=== PATIENT | male | born 1960 | race Caucasian/White ===

== ENCOUNTER 2017-09-04 00:14 | Emergency (ER) | payer SELFPAY ==
[2017-09-04] MEDS ORDERED: IPRATROPIUM BROM 0.5MG/2.5ML ONE (00:53)
[2017-09-04] MEDS ORDERED: ALBUTEROL 2.5 MG/3 ML NEB SOL ONE ×2 (00:53→01:59)
[2017-09-04] MEDS ORDERED: predniSONE 20 MG TAB ONE (01:18)
--- NOTE | 2017-09-04 02:25 | EDPHYS ---
Physician Documentation [facility] Name: Iwona Hill Age: 57 yrs Sex: Male : 1960 Arrival Date: 09/04/2017 Time: 00:17 Bed 4 Private MD: ED Physician Mikhail Paniagua HPI: 09/04 01:41 This 57 yrs old Male presents to ER via Ambulatory with complaints of Chest tw4 Congestion. 01:41 The patient has shortness of breath at rest. Onset: The symptoms/episode began/occurred tw4 today. Duration: The symptoms are continuous, and are steadily getting worse. The patient's shortness of breath has no apparent modifying factors. Associated signs and symptoms: Pertinent positives: non-productive cough. Severity of symptoms: At their worst the symptoms were moderate in the emergency department the symptoms are unchanged. The patient has not experienced similar symptoms in the past. Historical: - Allergies: 00:28 No Known Allergies; fc - Home Meds: 00:28 Seroquel 400 mg Oral tab 2 tab nightly [Active]; trazodone 100 mg Oral tab 1 tab fc nightly [Active]; Klonopin 1 mg Oral tab 1 tab nightly [Active]; - PMHx: 00:28 Bipolar disorder; fc - PSHx: 00:28 Tonsillectomy; fc - Immunization history:: Last tetanus immunization: unknown. - Social history:: Smoking status: Patient/guardian denies using tobacco. ROS: 01:41 Constitutional: Negative for fever, chills, and weight loss, Eyes: Negative for injury, tw4 pain, redness, and discharge, Cardiovascular: Negative for chest pain, palpitations, and edema, Abdomen/GI: Negative for abdominal pain, nausea, vomiting, diarrhea, and constipation, Back: Negative for injury and pain, MS/Extremity: Negative for injury and deformity, Skin: Negative for injury, rash, and discoloration, Neuro: Negative for headache, weakness, numbness, tingling, and seizure. 01:41 Respiratory: Positive for cough, shortness of breath, wheezing, Negative for dyspnea on exertion, hemoptysis, orthopnea, pleurisy. Exam: 01:41 Constitutional: This is a well developed, well nourished patient who is awake, alert, tw4 and in no acute distress. Head/Face: Normocephalic, atraumatic. Chest/axilla: Normal chest wall appearance and motion. Nontender with no deformity. No lesions are appreciated. Cardiovascular: Regular rate and rhythm with a normal S1 and S2. No gallops, murmurs, or rubs. Normal PMI, no JVD. No pulse deficits. 01:41 Abdomen/GI: Soft, non-tender, with normal bowel sounds. No distension or tympany. No guarding or rebound. No evidence of tenderness throughout. Back: No spinal tenderness. No costovertebral tenderness. Full range of motion. MS/ Extremity: Pulses equal, no cyanosis. Neurovascular intact. Full, normal range of motion. Neuro: Awake and alert, GCS 15, oriented to person, place, time, and situation. Cranial nerves II-XII grossly intact. Motor strength 5/5 in all extremities. Sensory grossly intact. Cerebellar exam normal. Normal gait. 01:41 Respiratory: the patient does not display signs of respiratory distress, Respirations: normal, Breath sounds: wheezing: Vital Signs: 00:28 BP 125 / 82; Pulse 79; Resp 20; Temp 97.6(TE); Pulse Ox 93% on R/A; Weight 86.18 kg fc (R); Height 5 ft. 8 in. (172.72 cm) (R); Pain 0/10; 01:25 BP 117 / 76; Pulse 66; Resp 18; Pulse Ox 97% on R/A; tl2 00:28 Body Mass Index 28.89 (86.18 kg, 172.72 cm) MDM: 00:33 Patient medically screened. tw4 09/04 00:38 Order name: Chest Single View XRAY tw4 Administered Medications: 00:40 Drug: Albuterol - atroVENT (3:1) (2.5 mg - 0.5 mg) 3 ml Route: Nebulizer; tl1 01:00 Drug: predniSONE 60 mg Route: PO; tl1 01:47 Drug: Albuterol 2.5 mg Route: Inhalation; aa1 Disposition: 09/04/17 02:24 Discharged to Home. Impression: Acute bronchospasm. - Condition is Stable. - Discharge Instructions: Bronchospasm, Adult, How to Use an Inhaler, Asthma, Adult, [id number], Bronchospasm, Adult, [id number]-[id number]. - Prescriptions for Medrol (Buddy) 4 mg Oral Tablets, Dose Pack - take 1 tablet by ORAL route as directed - follow package instructions; 1 packet. Albuterol Sulfate 90 mcg/actuation - inhale 1-2 puff by INHALATION route every 4-6 hours; 1 Inhaler. - Medication Reconciliation Form, Thank You Letter, Antibiotic Education, Prescription Opioid Use form. - Follow up: Private Physician; When: As needed; Reason: Recheck today's complaints, Continuance of care, Re-evaluation by your physician. - Problem is new. - Symptoms have improved. Signatures: Dispatcher [employer] EDPattie Duke RN RN aa1 Franny Redmond RN RN Mayra Whalen RN RN tl1 Mikhail Paniagua MD MD tw4
--- NOTE | 2017-09-04 02:25 | ER ---
Nurse's Notes [facility] Name: Iwona Hill Age: 57 yrs Sex: Male : 1960 Arrival Date: 09/04/2017 Time: 00:17 Bed 4 Private MD: Diagnosis: Acute bronchospasm Presentation: 09/04 00:25 Presenting complaint: Patient states: that he is having trouble breathing, has a cough fc with sputum that started on the 29 of August. States that when he coughs it feels as if his lungs are burning. Transition of care: patient was not received from another setting of care. Onset of symptoms was August 29, 2017. Care prior to arrival: Medication(s) given: Has taken Mucinex, Robitussin DM and NyQuil. 00:25 Method Of Arrival: Ambulatory fc 00:25 Acuity: ROLO 3 fc Historical: - Allergies: 00:28 No Known Allergies; fc - Home Meds: 00:28 Seroquel 400 mg Oral tab 2 tab nightly [Active]; trazodone 100 mg Oral tab 1 tab fc nightly [Active]; Klonopin 1 mg Oral tab 1 tab nightly [Active]; - PMHx: 00:28 Bipolar disorder; fc - PSHx: 00:28 Tonsillectomy; fc - Immunization history:: Last tetanus immunization: unknown. - Social history:: Smoking status: Patient/guardian denies using tobacco. Screenin:30 Abuse screen: Denies threats or abuse. Nutritional screening: No deficits noted. fc Tuberculosis screening: No symptoms or risk factors identified. Fall Risk None identified. Assessment: 00:41 General: Appears in no apparent distress. uncomfortable, Behavior is calm, cooperative, tl2 appropriate for age. Pain: Complains of pain in pain in lungs while coughing. Neuro: Level of Consciousness is awake, alert, obeys commands, Oriented to person, place, time, situation. Cardiovascular: Denies chest pain. Respiratory: Airway is patent Respiratory effort is even, unlabored, Respiratory pattern is regular, symmetrical, Breath sounds with wheezes bilaterally. the patient has moderate shortness of breath. Respiratory: Reports cough that is productive, pain with cough. GI: No signs and/or symptoms were reported involving the gastrointestinal system. : No signs and/or symptoms were reported regarding the genitourinary system. Derm: Skin is pink, warm \T\ dry. 01:25 Reassessment: Patient appears in no apparent distress at this time. Patient and/or tl2 family updated on plan of care and expected duration. Pain level reassessed. Patient is alert, oriented x 3, equal unlabored respirations, skin warm/dry/pink. Patient states feeling better. 02:38 Reassessment: Patient appears in no apparent distress at this time. Patient is alert, aa1 oriented x 3, equal unlabored respirations, skin warm/dry/pink. Discussed d/c \T\ f/u instructions with pt; denies questions or concerns at this time. Vital Signs: 00:28 BP 125 / 82; Pulse 79; Resp 20; Temp 97.6(TE); Pulse Ox 93% on R/A; Weight 86.18 kg fc (R); Height 5 ft. 8 in. (172.72 cm) (R); Pain 0/10; 01:25 BP 117 / 76; Pulse 66; Resp 18; Pulse Ox 97% on R/A; tl2 00:28 Body Mass Index 28.89 (86.18 kg, 172.72 cm) fc ED Course: 00:17 Patient arrived in ED. es 00:27 Triage completed. fc 00:28 Arm band placed on Patient placed in an exam room, on a stretcher. fc 00:30 Patient has correct armband on for positive identification. Placed in gown. Bed in low fc position. Call light in reach. 00:33 Mikhail Paniagua MD is Attending Physician. tw4 00:41 No provider procedures requiring assistance completed. tl2 01:35 X-ray completed. Portable x-ray completed in exam room. Patient tolerated procedure kp1 well. 01:38 Chest Single View XRAY In Process Unspecified. EDMS 02:38 Patient did not have IV access during this emergency room visit. aa1 Administered Medications: 00:40 Drug: Albuterol - atroVENT (3:1) (2.5 mg - 0.5 mg) 3 ml Route: Nebulizer; tl1 01:00 Drug: predniSONE 60 mg Route: PO; tl1 01:47 Drug: Albuterol 2.5 mg Route: Inhalation; aa1 Outcome: 02:24 Discharge ordered by . tw4 02:38 Discharged to home ambulatory, with family. aa1 02:38 Condition: good 02:38 Discharge instructions given to patient, family, Instructed on discharge instructions, follow up and referral plans. medication usage, Demonstrated understanding of instructions, follow-up care, medications, Prescriptions given X 2. 02:39 Patient left the ED. aa1 Signatures: Dispatcher [employer] EDPattie Duke RN RN aa1 Lala Loving Felicia, RN RN Mayra Whalen RN RN tl1 Josy Garcia RN RN tl2 Madeline Leslie 1 Mikhail Paniagua MD MD tw4
--- NOTE | 2017-09-04 11:11 | RAD REPORT ---
EXAM DESCRIPTION: RAD - Chest Single View - 09/04/2017 1:38 am CLINICAL HISTORY: Cough. COMPARISON: None. FINDINGS: Portable technique limits examination quality. The lungs are grossly clear. The heart is normal in size. No displaced fractures. IMPRESSION: No acute intrathoracic process suspected.
== END 2017-09-04 02:39 | disposition home or self-care (01) ==
LOC: ER 00:14
DX: J98.01 Acute bronchospasm (principal); F31.9 Bipolar disorder, unspecified
CPT/HCPCS: 71045; 94640; 99284; J7512

== ENCOUNTER 2018-04-05 18:03 | Emergency (ER) | payer OTHER, SELFPAY ==
[2018-04-05] MEDS ORDERED: KETOROLAC 30 MG/ML INJ ONE (18:43)
--- NOTE | 2018-04-05 19:05 | RAD REPORT ---
EXAM DESCRIPTION: CT - Head Brain Wo Cont - 04/05/2018 6:57 pm CLINICAL HISTORY: HEADACHE COMPARISON: No comparisons TECHNIQUE: All CT scans are performed using dose optimization technique as appropriate and may inclu de automated exposure control or mA/KV adjustment according to patient size. FINDINGS: No intracranial hemorrhage, hydrocephalus or extra-axial fluid collection.No areas of brai n edema or evidence of midline shift. The paranasal sinuses and mastoids are clear. The calvarium is intact. IMPRESSION: No acute intracranial abnormality.
--- NOTE | 2018-04-05 19:36 | EDPHYS ---
Physician Documentation [facility] Name: Iwona Hill Age: 58 yrs Sex: Male : 1960 Arrival Date: 04/05/2018 Time: 18:04 Bed 8 Private MD: Wilberto Santos V ED Physician Doug Flower HPI: 04/05 19:28 This 58 yrs old Male presents to ER via Wheelchair with complaints of Post gs Surgical Pain. 19:28 The patient complains of pain to the forehead and right eye. The patient describes the gs headache as throbbing. Onset: The symptoms/episode began/occurred gradually, just prior to arrival. Associated signs and symptoms: Pertinent negatives: altered mental status, vomiting. Severity of symptoms: At its worst the pain was severe, in the emergency department the pain is unchanged. Headache History: Denies prior headaches. The symptoms are alleviated by nothing. the symptoms are aggravated by nothing. The patient has experienced similar episodes in the past, a few times, but today's symptoms are worse. The patient has been recently seen by a physician: dr mcbride had cataract today. Historical: - Allergies: 18:21 No Known Allergies; ch - Home Meds: 18:21 Klonopin 1 mg Oral tab 1 tab nightly [Active]; Seroquel 400 mg Oral tab 2 tab nightly ch [Active]; trazodone 100 mg Oral tab 1 tab nightly [Active]; Propranolol Oral as needed for sedation [Active]; - PMHx: 18:21 Bipolar disorder; psychiatric issues; Kidney stones; LOC and concussion in ; ch - PSHx: 18:21 Tonsillectomy; r eye cataract; ch - Immunization history:: Adult Immunizations unknown, Flu vaccine is not up to date. - Social history:: Smoking status: Patient/guardian denies using tobacco. - Ebola Screening: : Patient negative for fever greater than or equal to 101.5 degrees Fahrenheit, and additional compatible Ebola Virus Disease symptoms Patient denies exposure to infectious person Patient denies travel to an Ebola-affected area in the 21 days before illness onset No symptoms or risks identified at this time. ROS: 19:28 All other systems are negative. gs Exam: 19:28 Head/Face: Normocephalic, atraumatic. Eyes: Pupils equal round and reactive to light, gs extra-ocular motions intact. Lids and lashes normal. Conjunctiva and sclera are non-icteric and not injected. Cornea within normal limits. Periorbital areas with no swelling, redness, or edema. ENT: Nares patent. No nasal discharge, no septal abnormalities noted. Tympanic membranes are normal and external auditory canals are clear. Oropharynx with no redness, swelling, or masses, exudates, or evidence of obstruction, uvula midline. Mucous membranes moist. Neck: Trachea midline, no thyromegaly or masses palpated, and no cervical lymphadenopathy. Supple, full range of motion without nuchal rigidity, or vertebral point tenderness. No Meningismus. Chest/axilla: Normal chest wall appearance and motion. Nontender with no deformity. No lesions are appreciated. Cardiovascular: Regular rate and rhythm with a normal S1 and S2. No gallops, murmurs, or rubs. Normal PMI, no JVD. No pulse deficits. Respiratory: Lungs have equal breath sounds bilaterally, clear to auscultation and percussion. No rales, rhonchi or wheezes noted. No increased work of breathing, no retractions or nasal flaring. Abdomen/GI: Soft, non-tender, with normal bowel sounds. No distension or tympany. No guarding or rebound. No evidence of tenderness throughout. Back: No spinal tenderness. No costovertebral tenderness. Full range of motion. Skin: Warm, dry with normal turgor. Normal color with no rashes, no lesions, and no evidence of cellulitis. MS/ Extremity: Pulses equal, no cyanosis. Neurovascular intact. Full, normal range of motion. Neuro: Awake and alert, GCS 15, oriented to person, place, time, and situation. Cranial nerves II-XII grossly intact. Motor strength 5/5 in all extremities. Sensory grossly intact. Cerebellar exam normal. Normal gait. 19:28 Constitutional: The patient appears alert, awake. 19:28 Eyes: r eye covered. Vital Signs: 18:21 BP 153 / 97; Pulse 88; Resp 14; Temp 98.6; Pulse Ox 99% on R/A; Weight 95.25 kg; Height ch 5 ft. 8 in. (172.72 cm); Pain 9/10; 19:07 BP 145 / 92; Pulse 86; Resp 16 S; Pulse Ox 95% on R/A; Pain 8/; jd3 18:21 Body Mass Index 31.93 (95.25 kg, 172.72 cm) MDM: 18:30 Patient medically screened. 19:28 Differential diagnosis: migraine, subarachnoid bleed, tension headache, vasomotor gs headache. Data reviewed: vital signs, nurses notes, and as a result, I will discharge patient. Response to treatment: the patient's symptoms have resolved after treatment. 04/05 18:33 Order name: CT Head Brain wo Cont; Complete Time: 19:22 gs Administered Medications: 18:40 Drug: TORadol 30 mg Route: IVP; Site: right hand; 19:10 Follow up: Response: No adverse reaction; Pain is decreased jd3 Disposition: 04/05/18 19:35 Discharged to Home. Impression: Headache, Other acute postprocedural pain. - Condition is Stable. - Discharge Instructions: General Headache Without Cause. - Medication Reconciliation Form, Thank You Letter, Antibiotic Education, Prescription Opioid Use form. - Follow up: Private Physician; When: 2 - 3 days; Reason: Re-evaluation by your physician. Signatures: Dispatcher [employer] EDMS Trudi Presley RN RN Doug Flower MD MD Kendrick Yoon RN RN jd3 Corrections: (The following items were deleted from the chart) 19:54 19:35 04/05/2018 19:35 Discharged to Home. Impression: Headache; Other acute jd3 postprocedural pain. Condition is Stable. Forms are Medication Reconciliation Form, Thank You Letter, Antibiotic Education, Prescription Opioid Use. Follow up: Private Physician; When: 2 - 3 days; Reason: Re-evaluation by your physician. gs
--- NOTE | 2018-04-05 19:36 | ER ---
Nurse's Notes [facility] Name: Iwona Hill Age: 58 yrs Sex: Male : 1960 Arrival Date: 04/05/2018 Time: 18:04 Bed 8 Private MD: Wilberto Santos V Diagnosis: Headache;Other acute postprocedural pain Presentation: 04/05 18:15 Presenting complaint: Patient states: cataract surgery today by dr. Kate around 0900 ch am. pt discharged from his office at 1200. at 1500 started getting a headache, to the front of his head. states his R eye is slightly uncomfortable, but the headache is a 9 out of 10. Transition of care: patient was not received from another setting of care. Onset of symptoms was April 05, 2018 at 15:00. Risk Assessment: Do you want to hurt yourself or someone else? Patient reports no desire to harm self or others. Initial Sepsis Screen: Does the patient meet any 2 criteria? No. Patient's initial sepsis screen is negative. Does the patient have a suspected source of infection? No. Patient's initial sepsis screen is negative. Care prior to arrival: None. 18:15 Method Of Arrival: Wheelchair 18:15 Acuity: ROLO 2 ch Triage Assessment: 18:21 General: Appears in no apparent distress. uncomfortable, Behavior is cooperative, ch appropriate for age, anxious, restless. Pain: Complains of pain in top of head, forehead and right eye Pain currently is 9 out of 10 on a pain scale. Pain began gradually. Neuro: No deficits noted. Level of Consciousness is awake, alert, obeys commands, Oriented to person, place, time, situation, [employer] are equal bilaterally Moves all extremities. Full function Gait is steady, Speech is normal, Facial symmetry appears normal, Facial symmetry: tongue is midline, R eye is bandaged. Cardiovascular: No deficits noted. Heart tones S1 S2 present. Respiratory: Airway is patent Respiratory effort is even, unlabored, Breath sounds are clear bilaterally. : No signs and/or symptoms were reported regarding the genitourinary system. Derm: Skin is pink, warm \T\ dry. Historical: - Allergies: 18:21 No Known Allergies; ch - Home Meds: 18:21 Klonopin 1 mg Oral tab 1 tab nightly [Active]; Seroquel 400 mg Oral tab 2 tab nightly [Active]; trazodone 100 mg Oral tab 1 tab nightly [Active]; Propranolol Oral as needed for sedation [Active]; - PMHx: 18:21 Bipolar disorder; psychiatric issues; Kidney stones; LOC and concussion in ; - PSHx: 18:21 Tonsillectomy; r eye cataract; - Immunization history:: Adult Immunizations unknown, Flu vaccine is not up to date. - Social history:: Smoking status: Patient/guardian denies using tobacco. - Ebola Screening: : Patient negative for fever greater than or equal to 101.5 degrees Fahrenheit, and additional compatible Ebola Virus Disease symptoms Patient denies exposure to infectious person Patient denies travel to an Ebola-affected area in the 21 days before illness onset No symptoms or risks identified at this time. Screenin:23 Abuse screen: Denies threats or abuse. Denies injuries from another. Nutritional screening: No deficits noted. Tuberculosis screening: No symptoms or risk factors identified. Fall Risk None identified. Assessment: 18:23 Reassessment: Patient appears in no apparent distress at this time. No changes from previously documented assessment. 18:49 Reassessment: Patient appears in no apparent distress at this time. No changes from previously documented assessment. Patient and/or family updated on plan of care and expected duration. Pain level reassessed. Patient is alert, oriented x 3, equal unlabored respirations, skin warm/dry/pink. Ct Called to check status, awaiting ct scan now. 18:58 Reassessment: Patient appears in no apparent distress at this time. report given to John. 19:03 Reassessment: Patient appears in no apparent distress at this time. No changes from [facility] previously documented assessment. Patient and/or family updated on plan of care and expected duration. Pain level reassessed. Patient is alert, oriented x 3, equal unlabored respirations, skin warm/dry/pink. General: Appears uncomfortable, Behavior is calm, cooperative. Pain: Complains of pain in head and right eye. Neuro: Level of Consciousness is awake, alert, obeys commands, Oriented to person, place, time, situation, Appropriate for age Gait is steady, Speech is normal, Facial symmetry appears normal, Intact right eye bandaged per post right eye cataract surgery.. 19:53 Reassessment: Patient appears in no apparent distress at this time. Patient and/or jd3 family updated on plan of care and expected duration. Pain level reassessed. Patient is alert, oriented x 3, equal unlabored respirations, skin warm/dry/pink. Patient states feeling better. Vital Signs: 18:21 BP 153 / 97; Pulse 88; Resp 14; Temp 98.6; Pulse Ox 99% on R/A; Weight 95.25 kg; Height ch 5 ft. 8 in. (172.72 cm); Pain 9/10; 19:07 BP 145 / 92; Pulse 86; Resp 16 S; Pulse Ox 95% on R/A; Pain 8/10; jd3 18:21 Body Mass Index 31.93 (95.25 kg, 172.72 cm) ED Course: 18:04 Patient arrived in ED. as 18:04 Wilberto Santos MD is Private Physician. as 18:08 Doug Flower MD is Attending Physician. gs 18:15 Trudi Presley, VANESSA is Primary Nurse. ch 18:17 Triage completed. ch 18:21 Arm band placed on left wrist. Patient placed in an exam room, on a stretcher, on pulse oximetry. 18:23 No apparent distress. Resting quietly. ch 18:23 Patient has correct armband on for positive identification. Placed in gown. Bed in low ch position. Call light in reach. Side rails up X 1. Pulse ox on. NIBP on. 18:23 No provider procedures requiring assistance completed. ch 18:39 Inserted saline lock: 20 gauge in right hand, using aseptic technique. ch 18:49 Door closed. Lights dimmed. Warm blanket given. ch 18:56 CT Head Brain wo Cont In Process Unspecified. EDMS 18:58 Report given to John. ch 18:[address] moved back from [address]. 2 19:00 Kendrick Yoon, RN is Primary Nurse. jd3 19:53 IV discontinued, intact, bleeding controlled, No redness/swelling at site. Pressure jd3 dressing applied. Administered Medications: 18:40 Drug: TORadol 30 mg Route: IVP; Site: right hand; ch 19:10 Follow up: Response: No adverse reaction; Pain is decreased jd3 Outcome: 19:35 Discharge ordered by . gs 19:52 Discharged to home ambulatory. jd3 19:52 Condition: stable 19:52 Discharge instructions given to patient, Instructed on discharge instructions, follow up and referral plans. Demonstrated understanding of instructions, follow-up care. 19:54 Patient left the ED. jd3 Signatures: Dispatcher [employer] EDMS Trudi Presley RN RN Sindhu Neal [facility] Doug Flower MD MD gs Davies, Jonathon, RN RN jd3 Corrections: (The following items were deleted from the chart) 18:50 18:49 Inserted saline lock: 20 gauge in right hand, using aseptic technique. [facility]
== END 2018-04-05 19:54 | disposition home or self-care (01) ==
LOC: ER 18:03
DX: R51 Headache (principal); F31.9 Bipolar disorder, unspecified; Z98.890 Other specified postprocedural states
CPT/HCPCS: 70450; 96374; 99284

== ENCOUNTER 2018-05-14 11:07 | Emergency (ER) | payer OTHER ==
--- NOTE | 2018-05-14 12:18 | EDPHYS ---
Physician Documentation [facility] Name: Iwona Hill Age: 58 yrs Sex: Male : 1960 Arrival Date: 05/14/2018 Time: 11:09 Bed 11 Private MD: None, None ED Physician Doug Flower HPI: 05/14 12:14 This 58 yrs old Male presents to ER via Ambulatory with complaints of Ear gs Pain - SWELLING. 12:14 The patient presents with pain, swelling. The complaints affect the left ear canal. gs Onset: The symptoms/episode began/occurred 4 day(s) ago, and became worse and became persistent. Modifying factors: The symptoms are alleviated by nothing, the symptoms are aggravated by touching. Associated signs and symptoms: Pertinent negatives: fever. Severity of symptoms: At their worst the symptoms were moderate in the emergency department the symptoms are unchanged. The patient has not experienced similar symptoms in the past. Historical: - Allergies: 11:19 No Known Allergies; aj1 - Home Meds: 11:19 Seroquel 400 mg Oral tab 2 tab nightly [Active]; Klonopin 1 mg Oral tab 1 tab nightly aj1 [Active]; Propranolol Oral as needed for sedation [Active]; trazodone 100 mg Oral tab 1 tab nightly [Active]; - PMHx: 11:19 Bipolar disorder; Kidney stones; LOC and concussion in ; psychiatric issues; aj1 - Immunization history:: Flu vaccine is not up to date. - Social history:: Smoking status: Patient/guardian denies using tobacco. - Ebola Screening: : Patient denies travel to an Ebola-affected area in the 21 days before illness onset. ROS: 12:14 All other systems are negative. gs Exam: 12:14 Head/Face: Normocephalic, atraumatic. Eyes: Pupils equal round and reactive to light, gs extra-ocular motions intact. Lids and lashes normal. Conjunctiva and sclera are non-icteric and not injected. Cornea within normal limits. Periorbital areas with no swelling, redness, or edema. Neck: Trachea midline, no thyromegaly or masses palpated, and no cervical lymphadenopathy. Supple, full range of motion without nuchal rigidity, or vertebral point tenderness. No Meningismus. Chest/axilla: Normal chest wall appearance and motion. Nontender with no deformity. No lesions are appreciated. Cardiovascular: Regular rate and rhythm with a normal S1 and S2. No gallops, murmurs, or rubs. Normal PMI, no JVD. No pulse deficits. Respiratory: Lungs have equal breath sounds bilaterally, clear to auscultation and percussion. No rales, rhonchi or wheezes noted. No increased work of breathing, no retractions or nasal flaring. Abdomen/GI: Soft, non-tender, with normal bowel sounds. No distension or tympany. No guarding or rebound. No evidence of tenderness throughout. Skin: Warm, dry with normal turgor. Normal color with no rashes, no lesions, and no evidence of cellulitis. 12:14 Constitutional: The patient appears alert, awake. 12:14 ENT: External ear(s): pain with movement, that is moderate, of the left ear canal, Ear canal(s): erythema, that is moderate, of the left canal, swelling, that is minimal, of the left canal, TM's: no acute changes. Vital Signs: 11:19 BP 139 / 85; Pulse 91; Resp 18; Temp 97.8; Pulse Ox 96% on R/A; Weight 95.25 kg (R); aj1 Height 5 ft. 8 in. (172.72 cm) (R); Pain 6/10; 11:19 Body Mass Index 31.93 (95.25 kg, 172.72 cm) aj1 MDM: 12:03 Patient medically screened. 12:14 Differential diagnosis: otitis externa, foreign body, acute otalgia. Data reviewed: vital signs, nurses notes. Counseling: I had a detailed discussion with the patient and/or guardian regarding: the historical points, exam findings, and any diagnostic results supporting the discharge/admit diagnosis, the need for outpatient follow up, an ENT specialist. Response to treatment: the patient's symptoms have mildly improved after treatment, and as a result, I will discharge patient. 12:18 Counseling: I had a detailed discussion with the patient and/or guardian regarding: the gs presence of at least one elevated blood pressure reading (>120/80) during this emergency department visit. Special discussion: I have referred the patient to see his PCP for further evaluation of high blood pressure. Administered Medications: No medications were administered Disposition: 05/14/18 12:17 Discharged to Home. Impression: Acute actinic otitis externa, left ear. - Condition is Stable. - Discharge Instructions: Ear Drops, Adult, Managing Your Hypertension. - Prescriptions for Ciprodex 0.3- 0.1 % Otic Drops, Suspension - instill 4 drop by OTIC route every 12 hours for 7 days , for ears ONLY; 1 Container. - Medication Reconciliation Form, Thank You Letter, Antibiotic Education, Prescription Opioid Use form. - Follow up: Kaila Love MD; When: 2 - 3 days; Reason: Re-evaluation by your physician. Signatures: Nidhi Estes RN RN aj1 Cookie Batista RN RN ss Doug Flower MD MD gs Corrections: (The following items were deleted from the chart) 12:24 12:17 05/14/2018 12:17 Discharged to Home. Impression: Acute actinic otitis externa, ss left ear. Condition is Stable. Forms are Medication Reconciliation Form, Thank You Letter, Antibiotic Education, Prescription Opioid Use. Follow up: Kaila Love; When: 2 - 3 days; Reason: Re-evaluation by your physician. gs
--- NOTE | 2018-05-14 12:18 | ER ---
Nurse's Notes [facility] Name: Iwona Hill Age: 58 yrs Sex: Male : 1960 Arrival Date: 05/14/2018 Time: 11:09 Bed 11 Private MD: None, None Diagnosis: Acute actinic otitis externa, left ear Presentation: 05/14 11:17 Presenting complaint: Patient states: "My ear feels like its about to fall off my head" aj1 Reports left ear pain for the past 4 days. States he bought "some ear cleaning stuff" from the grocery store and tried that and then tried some Swimmers Ear that he got at the store, but has not had any relief. Reports trouble hearing out of the left ear. Transition of care: patient was not received from another setting of care. Onset of symptoms was April 2018. Risk Assessment: Do you want to hurt yourself or someone else? Patient reports no desire to harm self or others. Initial Sepsis Screen: Does the patient meet any 2 criteria? HR > 90 bpm. No. Patient's initial sepsis screen is negative. Does the patient have a suspected source of infection? No. Patient's initial sepsis screen is negative. Care prior to arrival: None. 11:17 Method Of Arrival: Ambulatory aj1 11:17 Acuity: ROLO 4 aj1 Triage Assessment: 11:19 General: Appears in no apparent distress. uncomfortable, Behavior is calm, cooperative, aj1 appropriate for age. Pain: Complains of pain in left ear Pain currently is 6 out of 10 on a pain scale. EENT: Reports left ear pain. Neuro: Level of Consciousness is awake, alert, obeys commands. Cardiovascular: Patient's skin is warm and dry. Respiratory: Airway is patent Respiratory effort is even, unlabored, Respiratory pattern is regular, symmetrical. Historical: - Allergies: 11:19 No Known Allergies; aj1 - Home Meds: 11:19 Seroquel 400 mg Oral tab 2 tab nightly [Active]; Klonopin 1 mg Oral tab 1 tab nightly aj1 [Active]; Propranolol Oral as needed for sedation [Active]; trazodone 100 mg Oral tab 1 tab nightly [Active]; - PMHx: 11:19 Bipolar disorder; Kidney stones; LOC and concussion in ; psychiatric issues; aj1 - Immunization history:: Flu vaccine is not up to date. - Social history:: Smoking status: Patient/guardian denies using tobacco. - Ebola Screening: : Patient denies travel to an Ebola-affected area in the 21 days before illness onset. Screenin:21 Abuse screen: Denies threats or abuse. Denies injuries from another. Nutritional ss screening: No deficits noted. Tuberculosis screening: No symptoms or risk factors identified. Never had TB. Fall Risk None identified. Assessment: 11:23 General: Appears in no apparent distress. uncomfortable, Behavior is calm, cooperative, aj1 appropriate for age. Pain: Complains of pain in left ear Pain does not radiate. Pain currently is 6 out of 10 on a pain scale. Quality of pain is described as throbbing. Neuro: Level of Consciousness is awake, alert, obeys commands. Cardiovascular: Patient's skin is warm and dry. Respiratory: Airway is patent Respiratory effort is even, unlabored, Respiratory pattern is regular, symmetrical. GI: No signs and/or symptoms were reported involving the gastrointestinal system. : No signs and/or symptoms were reported regarding the genitourinary system. EENT: Reports ear pain, decreased hearing to left ear. Derm: No signs and/or symptoms reported regarding the dermatologic system. Skin is pink, warm \\T\\ dry. normal. Musculoskeletal: No signs and/or symptoms reported regarding the musculoskeletal system. Circulation, motion, and sensation intact. Vital Signs: 11:19 BP 139 / 85; Pulse 91; Resp 18; Temp 97.8; Pulse Ox 96% on R/A; Weight 95.25 kg (R); aj1 Height 5 ft. 8 in. (172.72 cm) (R); Pain 6/10; 11:19 Body Mass Index 31.93 (95.25 kg, 172.72 cm) aj1 ED Course: 11:09 Patient arrived in ED. sb2 11:09 None, None is Private Physician. sb2 11:19 Triage completed. aj1 11:19 Arm band placed on Patient placed in an exam room. aj1 11:21 Cookie Batista, RN is Primary Nurse. ss 11:21 Patient has correct armband on for positive identification. Bed in low position. Call ss light in reach. 11:21 Patient maintains SpO2 saturation greater than 95% on room air. ss 11:22 Flower Doug, MD is Attending Physician. 11:23 No provider procedures requiring assistance completed. aj1 12:17 Kaila Love MD is Referral Physician. 12:24 Patient did not have IV access during this emergency room visit. Administered Medications: No medications were administered Outcome: 12:17 Discharge ordered by . 12:24 Discharged to home ambulatory. 12:24 Condition: good 12:24 Discharge instructions given to patient, Instructed on discharge instructions, follow up and referral plans. medication usage, Demonstrated understanding of instructions, follow-up care, medications, Prescriptions given X 1. 12:24 Patient left the ED. Signatures: Nidhi Estes RN RN aj1 Cookie Batista RN RN Doug Flower MD MD Tracy Corado sb2
[2018-05-14 12:31] VITALS: BP 139/85; TEMP 97.8; O2SAT 96
== END 2018-05-14 12:24 | disposition home or self-care (01) ==
LOC: ER 11:07
DX: H60.512 Acute actinic otitis externa, left ear (principal); F31.9 Bipolar disorder, unspecified
CPT/HCPCS: 99284

== ENCOUNTER 2018-05-15 15:43 | Inpatient (IN) | payer OTHER ==
[2018-05-15] MEDS ORDERED: NA CHLORIDE 0.9% 500 ML ONE (16:11)
[2018-05-15] MEDS ORDERED: PIPER/TAZO/NS 3.375gm 3.375 GM/100 ML BAG ONE (16:11)
[2018-05-15] MEDS ORDERED: VANCOMYCIN 1 GM/250 ML BAG ONE (16:11)
[2018-05-15 16:59] LABS: Absolute Lymphocytes (CBC) 1.6 K/uL (0.7-4.9); Absolute Monocytes 1.1 K/uL (0.1-1.3); Basophils % 0.6 % (0-1.3); Eosinophils % 2.5 % (0-4.4); Lymphocytes % 16.2 % (15.3-44.8); MPV 7.7 fL (7.6-11.3); RBC Red Blood Cell Count 4.96 M/uL (4.33-5.43)
[2018-05-15 17:01] LABS: Potassium 4.5 mmol/L (3.5-5.1)
--- NOTE | 2018-05-15 17:39 | RAD REPORT ---
EXAM DESCRIPTION: CT - Soft Tissue Neck W/Contr - 05/15/2018 5:21 pm CLINICAL HISTORY: Left-sided facial swelling and left ear pain TECHNIQUE: During dynamic enhancement using 100 milliliters nonionic IV contrast, axial 5 millimeter thick images of the neck were obtained. All CT scans are performed using dose optimization technique as appropriate and may include automated exposure control or mA/KV adjustment according to patient size. FINDINGS: Intracranial portion the examination is unremarkable. No globe or orbital content abnormal ity. No acute paranasal sinus finding. No pharyngeal mucosal mass or asymmetry. Tonsillar and tongue base tissues are unremarkable. Soft pal ate, epiglottis and larynx also unremarkable. Thyroid, parotid and submandibular glands are normal. There is thickening and edema of the soft tissues of the external auditory canal. This extends somewh at into the left earlobe. Minimal edema along the posterior margin of the parotid gland. A few reacti ve lymph nodes are present in this region. The mastoid air cells are clear. Left middle ear is normal ly aerated. IMPRESSION: Left otitis externa extending into the inferior left earlobe and in the soft tissues vivek ng the posterior margin of the left parotid gland. Mastoid air cells and middle ear are clear.
[2018-05-15] MEDS ORDERED: FENTANYL CITR 100 MCG/2 ML ONE (18:02)
--- NOTE | 2018-05-15 18:26 | EDPHYS ---
Physician Documentation [facility] Name: Iwona Hill Age: 58 yrs Sex: Male : 1960 Arrival Date: 05/15/2018 Time: 15:45 Bed 24 Private MD: None, None ED Physician Doug Flower HPI: 05/15 18:20 This 58 yrs old Male presents to ER via Ambulatory with complaints of Facial gs Swelling. 18:20 The patient presents with tenderness. The complaints affect the left ear. Onset: The gs symptoms/episode began/occurred gradually, 3 day(s) ago, and became worse. Modifying factors: The symptoms are alleviated by nothing, the symptoms are aggravated by pulling on ears, touching. Associated signs and symptoms: Pertinent negatives: fever. Severity of symptoms: At their worst the symptoms were moderate in the emergency department the symptoms are unchanged. The patient has not experienced similar symptoms in the past. The patient has been recently seen at the [facility] Emergency Department, yesterday. MORE SWELLING AND REDNESS. Historical: - Allergies: 15:48 No Known Allergies; hj - Home Meds: 15:48 Klonopin 1 mg Oral tab 1 tab nightly [Active]; Propranolol Oral as needed for sedation hj [Active]; Seroquel 400 mg Oral tab 2 tab nightly [Active]; trazodone 100 mg Oral tab 1 tab nightly [Active]; - PMHx: 15:48 Bipolar disorder; Kidney stones; LOC and concussion in s; psychiatric issues; hj - PSHx: 15:48 catract surgery; hj - Immunization history:: Adult Immunizations up to date. - Social history:: Smoking status: Patient/guardian denies using tobacco, Patient/guardian denies using alcohol. - Ebola Screening: : Patient negative for fever greater than or equal to 101.5 degrees Fahrenheit, and additional compatible Ebola Virus Disease symptoms Patient denies exposure to infectious person Patient denies travel to an Ebola-affected area in the 21 days before illness onset. ROS: 18:20 All other systems are negative. gs Exam: 18:20 Eyes: Pupils equal round and reactive to light, extra-ocular motions intact. Lids and gs lashes normal. Conjunctiva and sclera are non-icteric and not injected. Cornea within normal limits. Periorbital areas with no swelling, redness, or edema. Neck: Trachea midline, no thyromegaly or masses palpated, and no cervical lymphadenopathy. Supple, full range of motion without nuchal rigidity, or vertebral point tenderness. No Meningismus. Chest/axilla: Normal chest wall appearance and motion. Nontender with no deformity. No lesions are appreciated. Cardiovascular: Regular rate and rhythm with a normal S1 and S2. No gallops, murmurs, or rubs. Normal PMI, no JVD. No pulse deficits. Respiratory: Lungs have equal breath sounds bilaterally, clear to auscultation and percussion. No rales, rhonchi or wheezes noted. No increased work of breathing, no retractions or nasal flaring. Abdomen/GI: Soft, non-tender, with normal bowel sounds. No distension or tympany. No guarding or rebound. No evidence of tenderness throughout. Back: No spinal tenderness. No costovertebral tenderness. Full range of motion. MS/ Extremity: Pulses equal, no cyanosis. Neurovascular intact. Full, normal range of motion. Neuro: Awake and alert, GCS 15, oriented to person, place, time, and situation. Cranial nerves II-XII grossly intact. Motor strength 5/5 in all extremities. Sensory grossly intact. Cerebellar exam normal. Normal gait. 18:20 Constitutional: The patient appears alert, awake. 18:20 Head/face: Noted is erythema, that is moderate, of the left catholic and left zygomatic area. 18:20 ENT: External ear(s): pain with movement, that is moderate, of the left ear canal, SWELLING OF TRAGUS. 18:20 Skin: cellulitis, that is moderate, on the left cheek and left ear. Vital Signs: 15:49 BP 148 / 92; Pulse 96; Resp 18; Temp 98.4(O); Pulse Ox 98% on R/A; Weight 95.25 kg; hj Height 5 ft. 8 in. (172.72 cm); Pain 8/10; 16:57 BP 152 / 100; Pulse 91; Resp 18; Pulse Ox 98% on R/A; tl3 18:44 BP 149 / 77; Pulse 88; Resp 18; Pulse Ox 99% ; tl3 19:55 BP 151 / 86; Pulse 89; Resp 18; Pulse Ox 99% on R/A; tl3 15:49 Body Mass Index 31.93 (95.25 kg, 172.72 cm) hj MDM: 15:57 Patient medically screened. 18:20 Differential diagnosis: otitis media, otitis externa, CELLULITIS,MASTOIDITIS,MALIGNANT gs OE. Data reviewed: vital signs, nurses notes. Physician consultation: Kaila Love MD and will see patient in inpatient room. 05/15 15:58 Order name: CBC with Diff 05/15 15:58 Order name: Basic Metabolic Panel 05/15 15:58 Order name: Blood Culture* 05/15 17:02 Order name: CBC with Automated Diff; Complete Time: 17:02 EDMS 05/15 17:02 Order name: Basic Metabolic Panel; Complete Time: 17:02 EDMS 05/15 17:39 Order name: CT; Complete Time: 17:41 EDMS Administered Medications: 16:46 Drug: vancoMYCIN 1 grams Route: IVPB; Infused Over: 2 hrs; Site: left wrist; Delivery: tl3 Primary tubing; 19:44 Follow up: IV Status: Completed infusion; IV Intake: 250ml tl3 16:47 Drug: Zosyn 4.5 grams Route: IVPB; Infused Over: 60 mins; Site: right antecubital; tl3 Delivery: Primary tubing; 19:58 Follow up: IV Status: Completed infusion; IV Intake: 100ml tl3 19:58 Follow up: IV Status: Completed infusion; IV Intake: 100ml tl3 17:49 Drug: fentaNYL (PF) 50 mcg Route: IVP; Infused Over: 2 mins; Site: right antecubital; tl3 18:44 Follow up: Response: No adverse reaction; Marked relief of symptoms; Pain is decreased tl3 Disposition: 05/15/18 18:25 Hospitalization ordered by Farhan Anton for Inpatient Admission. Preliminary diagnosis is Malignant otitis externa, left ear. - Bed requested for Telemetry/MedSurg (Inpatient). - Status is Inpatient Admission. tl3 - Condition is Stable. - Problem is new. - Symptoms have improved. UTI on Admission? No Signatures: Dispatcher [employer] EDMS Gabriela Vizcarra RN RN kl Joaquin, Henry, RN RN hj Starr, Gregory, MD MD gs Lowrey, Tammy, RN RN tl3 Corrections: (The following items were deleted from the chart) 19:19 18:25 Hospitalization Ordered by Farhan Anton MD for Inpatient Admission. Preliminary kl diagnosis is Malignant otitis externa, left ear. Bed requested for Telemetry/MedSurg (Inpatient). Status is Inpatient Admission. Condition is Stable. Problem is new. Symptoms have improved. UTI on Admission? No. gs 20:04 19:19 05/15/2018 18:25 Hospitalization Ordered by Farhan Anton MD for Inpatient tl3 Admission. Preliminary diagnosis is Malignant otitis externa, left ear. Bed requested for Telemetry/MedSurg (Inpatient). Status is Inpatient Admission. Condition is Stable. Problem is new. Symptoms have improved. UTI on Admission? No. kl
--- NOTE | 2018-05-15 18:26 | ER ---
Nurse's Notes [facility] Name: Iwona Hill Age: 58 yrs Sex: Male : 1960 Arrival Date: 05/15/2018 Time: 15:45 Bed 24 Private MD: None, None Diagnosis: Malignant otitis externa, left ear Presentation: 05/15 15:46 Presenting complaint: Patient states: i noticed that my L side of my face is swollen, i hj had an ear infection couple days ago; used OTC from [facility] but didn't help; reports muffled sound on the L ear; reports pain is 8/10;. Transition of care: patient was not received from another setting of care. Onset of symptoms was May 15, 2018. Risk Assessment: Do you want to hurt yourself or someone else? Patient reports no desire to harm self or others. Initial Sepsis Screen: Does the patient meet any 2 criteria? No. Patient's initial sepsis screen is negative. Does the patient have a suspected source of infection? No. Patient's initial sepsis screen is negative. Care prior to arrival: None. 15:46 Method Of Arrival: Ambulatory 15:46 Acuity: ROLO 4 hj Triage Assessment: 15:49 General: Appears in no apparent distress. uncomfortable, Behavior is calm, cooperative, hj appropriate for age. Pain: Complains of pain in left ear and left cheek Pain currently is 8 out of 10 on a pain scale. Historical: - Allergies: 15:48 No Known Allergies; hj - Home Meds: 15:48 Klonopin 1 mg Oral tab 1 tab nightly [Active]; Propranolol Oral as needed for sedation hj [Active]; Seroquel 400 mg Oral tab 2 tab nightly [Active]; trazodone 100 mg Oral tab 1 tab nightly [Active]; - PMHx: 15:48 Bipolar disorder; Kidney stones; LOC and concussion in ; psychiatric issues; - PSHx: 15:48 catract surgery; hj - Immunization history:: Adult Immunizations up to date. - Social history:: Smoking status: Patient/guardian denies using tobacco, Patient/guardian denies using alcohol. - Ebola Screening: : Patient negative for fever greater than or equal to 101.5 degrees Fahrenheit, and additional compatible Ebola Virus Disease symptoms Patient denies exposure to infectious person Patient denies travel to an Ebola-affected area in the 21 days before illness onset. Screenin:49 Abuse screen: Denies threats or abuse. Denies injuries from another. Nutritional hj screening: No deficits noted. Tuberculosis screening: No symptoms or risk factors identified. Fall Risk None identified. Assessment: 16:57 General: Appears uncomfortable, well groomed, well developed, well nourished, Behavior tl3 is calm, cooperative, appropriate for age. Pain: Complains of pain in face and left cheek and left ear Pain currently is 8 out of 10 on a pain scale. Neuro: No deficits noted. Level of Consciousness is awake, alert, obeys commands, Oriented to person, place, time, situation, Appropriate for age. Cardiovascular: Patient's skin is warm and dry. Respiratory: Airway is patent Respiratory effort is even, unlabored, Respiratory pattern is regular, symmetrical. GI: No deficits noted. No signs and/or symptoms were reported involving the gastrointestinal system. : No deficits noted. No signs and/or symptoms were reported regarding the genitourinary system. EENT: right ear pain with swelling to cheek and behind ear. Derm: No deficits noted. No signs and/or symptoms reported regarding the dermatologic system. 18:00 Reassessment: Patient and/or family updated on plan of care and expected duration. Pain tl3 level reassessed. Patient is alert, oriented x 3, equal unlabored respirations, skin warm/dry/pink. pt states he is feeling better. 18:44 Reassessment: Patient appears in no apparent distress at this time. No changes from tl3 previously documented assessment. Patient and/or family updated on plan of care and expected duration. Pain level reassessed. Patient is alert, oriented x 3, equal unlabored respirations, skin warm/dry/pink. 19:55 Reassessment: Patient appears in no apparent distress at this time. No changes from tl3 previously documented assessment. Patient and/or family updated on plan of care and expected duration. Pain level reassessed. Patient is alert, oriented x 3, equal unlabored respirations, skin warm/dry/pink. Vital Signs: 15:49 BP 148 / 92; Pulse 96; Resp 18; Temp 98.4(O); Pulse Ox 98% on R/A; Weight 95.25 kg; hj Height 5 ft. 8 in. (172.72 cm); Pain 8/10; 16:57 BP 152 / 100; Pulse 91; Resp 18; Pulse Ox 98% on R/A; tl3 18:44 BP 149 / 77; Pulse 88; Resp 18; Pulse Ox 99% ; tl3 19:55 BP 151 / 86; Pulse 89; Resp 18; Pulse Ox 99% on R/A; tl3 15:49 Body Mass Index 31.93 (95.25 kg, 172.72 cm) ED Course: 14:30 Initial lab(s) drawn, by nv, sent to lab. First set of blood cultures drawn by me, tl3 Second set of blood cultures drawn by me. 15:45 Patient arrived in ED. sb2 15:45 None, None is Private Physician. sb2 15:48 Triage completed. hj 15:49 Arm band placed on left wrist. hj 15:49 Patient has correct armband on for positive identification. Bed in low position. Call light in reach. Side rails up X 1. Adult w/ patient. 15:52 Doug Flower MD is Attending Physician. gs 15:58 Alba Phan, VANESSA is Primary Nurse. tl3 16:14 Radiology exam delayed due to lab results not completed at this time. (BUN/Creatinine). bq 16:57 Pulse ox on. NIBP on. Door closed. Lights dimmed. tl3 16:57 No provider procedures requiring assistance completed. Inserted saline lock: 20 gauge tl3 in right in left antecubital area, using aseptic technique. wrist, using aseptic technique. Blood collected. 17:01 Blood Culture* Sent. tl3 17:01 Basic Metabolic Panel Sent. tl3 17:01 CBC with Diff Sent. tl3 17:[address] via wheelchair. tl3 17:16 CT completed. Patient tolerated procedure well. Patient moved back from CT. bq 17:44 Private physician called and left message for ENT complaint investigations officer Dr. Love for Dr. Flower. eb 18:[address] Love returned call and connected with Dr. Flower for patient eb consultation. 18:25 Farhan Anton MD is Hospitalizing Provider. gs 19:55 Patient admitted, IV remains in place. tl3 Administered Medications: 16:46 Drug: vancoMYCIN 1 grams Route: IVPB; Infused Over: 2 hrs; Site: left wrist; Delivery: tl3 Primary tubing; 19:44 Follow up: IV Status: Completed infusion; IV Intake: 250ml tl3 16:47 Drug: Zosyn 4.5 grams Route: IVPB; Infused Over: 60 mins; Site: right antecubital; tl3 Delivery: Primary tubing; 19:58 Follow up: IV Status: Completed infusion; IV Intake: 100ml tl3 19:58 Follow up: IV Status: Completed infusion; IV Intake: 100ml tl3 17:49 Drug: fentaNYL (PF) 50 mcg Route: IVP; Infused Over: 2 mins; Site: right antecubital; tl3 18:44 Follow up: Response: No adverse reaction; Marked relief of symptoms; Pain is decreased tl3 Intake: 19:44 IV: 250ml; Total: 250ml. tl3 19:58 IV: 100ml; Total: 350ml. tl3 19:58 IV: 100ml; Total: 450ml. tl3 Outcome: 18:25 Decision to Hospitalize by Provider. 19:55 Admitted to Tele accompanied by tech, via wheelchair, with chart, Report called to tl3 VANESSA Cooper 19:55 Condition: stable 19:55 Instructed on the need for admit. 20:04 Patient left the ED. 3 Signatures: Codie Holguin Henry, RN RN hj Starr, Gregory, MD MD Tracy Corado Alba Cabrera RN RN 3 Natalya Walden Corrections: (The following items were deleted from the chart) 15:51 15:49 Pulse 96bpm; Resp 18bpm; Pulse Ox 98% RA; Temp 98.4F Oral; 95.25 kg; Height 5 ft. hj 8 in.; BMI: 31.9; Pain 8/10; hj
--- NOTE | 2018-05-15 20:31 | P.HP ---
Certification for Inpatient Patient admitted to: Inpatient With expected LOS: >2 Midnights Practitioner: I am a practitioner with admitting privileges, knowledge of patient current condition, hospital course, and medical plan of care. Services: Services provided to patient in accordance with Admission requirements found in Title 42 Section 412.3 of the Code of Federal Regulations Patient History Date of Service: 05/15/18 Reason for admission: external otitis History of Present Illness: Mr Hill is a 58 years old male who about 3 days ago start having some itchiness on his left ear. The itchiness progressed to mild pain. He tried OTC ear drops, but did not work. Gradually his external ear, start to be swollen, and the pain increased. Today he noticed that his left side of the face was swollen as well and deiced to come to ER for evaluation. He denied fever or chills. The pain intensity is about 8/10. CT Soft Tissue Neck was remarkable for left external otitis extending to the left parotid gland. Allergies No Known Allergies Allergy (Unverified 09/04/17 02:47) Home medications list reviewed: Yes - Past Medical/Surgical History -: bipolar disorder -: nephrolithiasis -: cataracts - Family History Family History: Reviewed- Non-Contributory - Social History Smoking Status: Never smoker Alcohol use: Yes CD- Drugs: No Place of Residence: Home Review of Systems 10-point ROS is otherwise unremarkable Physical Examination - Vital Signs Temperature: 98.4 F Blood Pressure: 151/86 Pulse: 89 Respirations: 18 - Physical Exam General: Alert, In no apparent distress HEENT: Atraumatic, PERRLA, Mucous membr. moist/pink, Other (left auricle swollen , erythematouse, tender to palpation. Left parotid gland with signs of inflammation.), EOMI, Sclerae nonicteric Neck: Supple, 2+ carotid pulse no bruit, No LAD, Without JVD or thyroid abnormality Respiratory: Clear to auscultation bilaterally, Normal air movement Cardiovascular: Regular rate/rhythm, Normal S1 S2 Gastrointestinal: Normal bowel sounds, No tenderness Musculoskeletal: No tenderness Integumentary: No rashes Neurological: Normal gait, Normal speech, Normal strength at 5/5 x4 extr, Normal tone, Normal affect Lymphatics: No axilla or inguinal lymphadenopathy - Studies Laboratory Data (last 24 hrs) 05/15/18 16:15: Sodium 139, Potassium 4.5, BUN 13, Creatinine 1.40 H, Glucose 109 H 05/15/18 16:15: WBC 10.0, Hgb 15.0, Hct 43.0, Plt Count 250 Assessment and Plan - Problems (Diagnosis) (1) External otitis Current Visit: Yes Status: Acute Qualifiers: Otitis externa type: unspecified type Chronicity: acute Laterality: left Qualified Code(s): H60.502 - Unspecified acute noninfective otitis externa, left ear (2) Bipolar disorder Current Visit: Yes Status: Acute Qualifiers: Active/Remission status: in remission of unspecified degree Qualified Code( s): F31.70 - Bipolar disorder, currently in remission, most recent episode unspecified (3) Renal insufficiency Current Visit: Yes Status: Acute - Plan The patient will be admitted to the hospital due to external otitis extending to left parotid gland. Dr Love has been consulted and has recommended to continue IV antibiotic treatment. She will see the patient in AM for further recommendations. Continue symptomatic medication. - Advance Directives Does patient have a Living Will: No Does patient have a Durable POA for Healthcare: No - Code Status/Comfort Care Code Status Assessed: Yes Code Status: Full Code
[2018-05-15] MEDS ORDERED: ONDANSETRON 4 MG/2 ML VIAL IV PRN (20:48)
[2018-05-15] MEDS ORDERED: ACETAMINOPHEN 500 MG TAB PO PRN (20:48)
[2018-05-15] MEDS ORDERED: VANCOMYCIN 1GM/D5W 200 ML IV SCH (21:00)
[2018-05-15] MEDS ORDERED: QUETIAPINE 100MG TAB PO SCH (21:00)
[2018-05-15] MEDS ORDERED: VANCOMYCIN 750 MG in NA CHLORIDE 0.9% 150 ML IVPB ONE (21:15)
[2018-05-15] MEDS ORDERED: VANCOMYCIN 500 MG/VIAL ONE (21:47)
[2018-05-15] MEDS: NA CHLORIDE 0.9% 1,000 ML IV SCH (21:48)
[2018-05-15] MEDS ORDERED: NA CHLORIDE 0.9% 250 ML ONE (21:49)
[2018-05-15] MEDS: HYDROCODONE/APAP 7.5/325 MG TAB PO PRN (21:49)
[2018-05-15] MEDS: clonazePAM 1 MG TAB PO SCH (21:49)
[2018-05-15] MEDS: TRAZODONE 50 MG TABLET PO SCH (21:50)
[2018-05-15 22:21] VITALS: BMI 31.9
[2018-05-16] MEDS ORDERED: PIPER/TAZO/NS 3.375gm 3.375 GM/100 ML BAG ONE (00:19)
[2018-05-16] MEDS: PIPER/TAZO/NS 3.375gm 3.375 GM/100 ML BAG IVPB SCH ×3 (00:48→16:41)
[2018-05-16 04:13] LABS: Absolute Lymphocytes (CBC) 1.9 K/uL (0.7-4.9); Absolute Monocytes 1.1 K/uL (0.1-1.3); Basophils % 0.5 % (0-1.3); Eosinophils % 2.6 % (0-4.4); Hematocrit 38.4 % (39.6-49.0); Lymphocytes % 16.8 % (15.3-44.8); MPV 7.3 fL (7.6-11.3); Monocytes % 9.6 % (3.3-12.3); RBC Red Blood Cell Count 4.41 M/uL (4.33-5.43)
[2018-05-16 04:26] LABS: Potassium 3.9 mmol/L (3.5-5.1)
[2018-05-16] MEDS: NA CHLORIDE 0.9% 1,000 ML IV SCH ×2 (06:48→16:42)
[2018-05-16] MEDS: HYDROCODONE/APAP 7.5/325 MG TAB PO PRN (08:47)
[2018-05-16] MEDS: MORPHINE 2 MG/ML SYR IV PRN ×2 (10:48→16:46)
[2018-05-16] MEDS ORDERED: IBUPROFEN 400 MG TAB PO PRN (14:59)
[2018-05-16] MEDS ORDERED: clonazePAM 1 MG TAB PO ONE (15:56)
[2018-05-16] MEDS ORDERED: ACYCLOVIR INJ 400 MG in NA CHLORIDE 0.9% 100 ML IVPB SCH (18:10)
[2018-05-16] MEDS: ACYCLOVIR INJ 400 MG in NA CHLORIDE 0.9% 100 ML IVPB SCH (18:38)
[2018-05-16] MEDS: ACETAMINOPHEN 325 MG TABLET PO PRN (18:39)
[2018-05-16] MEDS ORDERED: VANCOMYCIN 1.75 GM in NA CHLORIDE 0.9% 500 ML IV SCH (20:00)
[2018-05-16] MEDS ORDERED: QUETIAPINE 100MG TAB PO SCH (21:00)
[2018-05-16] MEDS: TRAZODONE 50 MG TABLET PO SCH (21:18)
[2018-05-16] MEDS: clonazePAM 1 MG TAB PO SCH (21:18)
[2018-05-16] MEDS: GABAPENTIN 300 MG CAP PO SCH (21:19)
--- NOTE | 2018-05-16 21:29 | PN ---
Subjective: The patient is seen and examined. Chart reviewed and case discussed with RN. The patie nt is still complaining of some pain in his left ear. Medications: List reviewed. Physical Examination: VITAL SIGNS: Temperature 99.5, heart rate 90, blood pressure 130/70, respirations 16, O2 97% on room air. GENERAL: Awake, alert, oriented x3. Some mild distress due to pain. Obese male. HEENT: Normocephalic, atraumatic. PERRLA. EOMI. Moist mucous membranes. Oropharynx is clear. No rmal dentition. Conjunctivae anicteric. Left ear erythematous, tender to palpation. Swelling of th e left side of the face with surrounding erythema. CV: S1 and S2. Peripheral pulses present. No murmurs. RESPIRATORY: Moving air well bilaterally. No wheezing or stridor. GASTROINTESTINAL: Abdomen is sof t, nontender, nondistended. Positive bowel sounds. EXTREMITIES: No clubbing, cyanosis, or edema. NEURO: Nonfocal. Laboratory Data: Sodium 141, potassium 3.9, chloride 110, CO2 25, BUN 11, creatinine 1.3, glucose 10 0, calcium 7.9. WBC 11.3, H and H 13.4 and 38.4, platelets 223, neutrophils 70%. Blood cultures pen ding. CT of the soft tissue neck shows left otitis externa, extending into the inferior left earlobe and in the soft tissues along the posterior margin of the left parotid gland. Mastoid air cells and middle ear are clear. Assessment And Plan: A 58-year-old male with, 1.Malignant otitis externa, left ear. We will continue with broad-spectrum IV antibiotics. ENT, Dr Lorena Love has been consulted. The patient is still having some low-grade fevers 100.2. WBC count is slightly elevated at 11.3. 2.Acute kidney injury. Creatinine has improved. Continue with IV fluids. 3.Obesity, body mass index 39.1. 4.Bipolar disorder, in remission. 5.Gastrointestinal and deep venous thrombosis prophylaxis addressed. Continue IV antibiotics. Foll ow up on cultures. Likely discharge in the next 48-72 hours depending on clinical response. Follow up with ENT recommendations. /STEPHANIE Voice ID: [id number] Report ID: [id number]
[2018-05-17] MEDS: PIPER/TAZO/NS 3.375gm 3.375 GM/100 ML BAG IVPB SCH ×3 (01:02→16:33)
[2018-05-17] MEDS: ACYCLOVIR INJ 400 MG in NA CHLORIDE 0.9% 100 ML IVPB SCH ×2 (02:28→09:25)
[2018-05-17] MEDS: NA CHLORIDE 0.9% 1,000 ML IV SCH ×2 (02:48→11:23)
[2018-05-17 05:39] LABS: Absolute Lymphocytes (CBC) 1.8 K/uL (0.7-4.9); Absolute Monocytes 1.3 K/uL (0.1-1.3); Absolute Neutrophil 5.3 K/uL (1.8-8.0); Basophils % 0.6 % (0-1.3); Eosinophils % 3.8 % (0-4.4); Hematocrit 39.1 % (39.6-49.0); Lymphocytes % 20.5 % (15.3-44.8); MPV 7.1 fL (7.6-11.3); RBC Red Blood Cell Count 4.53 M/uL (4.33-5.43)
[2018-05-17 05:53] LABS: Potassium 3.9 mmol/L (3.5-5.1)
[2018-05-17] MEDS: ACETAMINOPHEN 325 MG TABLET PO PRN ×2 (06:11→11:22)
[2018-05-17] MEDS: GABAPENTIN 300 MG CAP PO SCH ×2 (08:11→13:27)
[2018-05-17 11:09] VITALS: O2SAT 97
[2018-05-17 16:52] VITALS: BP 168/94; TEMP 99.1
--- NOTE | 2018-05-17 16:56 | P.DS ---
Admission Date: 05/15/18 Discharge Date: 05/17/18 Disposition: ROUTINE DISCHARGE Discharge Condition: GOOD Reason for Admission: external otitis Consultations: ENT, Dr. Asif Procedures: EXAM DESCRIPTION: CT - Soft Tissue Neck W/Contr - 05/15/2018 5:21 pm CLINICAL HISTORY: Left-sided facial swelling and left ear pain TECHNIQUE: During dynamic enhancement using 100 milliliters nonionic IV contrast, axial 5 millimeter thick images of the neck were obtained. All CT scans are performed using dose optimization technique as appropriate and may include automated exposure control or mA/KV adjustment according to patient size. FINDINGS: Intracranial portion the examination is unremarkable. No globe or orbital content abnormality. No acute paranasal sinus finding. No pharyngeal mucosal mass or asymmetry. Tonsillar and tongue base tissues are unremarkable. Soft palate, epiglottis and larynx also unremarkable. Thyroid, parotid and submandibular glands are normal. There is thickening and edema of the soft tissues of the external auditory canal. This extends somewhat into the left earlobe. Minimal edema along the posterior margin of the parotid gland. A few reactive lymph nodes are present in this region. The mastoid air cells are clear. Left middle ear is normally aerated. IMPRESSION: Left otitis externa extending into the inferior left earlobe and in the soft tissues along the posterior margin of the left parotid gland. Mastoid air cells and middle ear are clear. Brief History of Present Illness: Mr Hill is a 58 years old male who about 3 days ago start having some itchiness on his left ear. The itchiness progressed to mild pain. He tried OTC ear drops, but did not work. Gradually his external ear, start to be swollen, and the pain increased. Today he noticed that his left side of the face was swollen as well and deiced to come to ER for evaluation. He denied fever or chills. The pain intensity is about 8/10. CT Soft Tissue Neck was remarkable for left external otitis extending to the left parotid gland. Hospital Course: Patient was admitted from malignant otitis externa on his left year. He was started on broad-spectrum IV antibiotics, ENT, Dr. asif was consulted. Per ENT, this could also be a case of atypical shingles. Patient was started on IV acyclovir. His symptoms improved with the addition of acyclovir. He remained afebrile for more than 24 hr, WBC count improved and clinically patient states symptoms have improved drastically. Patient also states his pain has improved since admission. Prior to discharge, discussed case with ENT. Patient is to be discharged on oral acyclovir 800 mg 5 times a day for 7 days along with ciprofloxacin 750 mg q. 12th for 14 days. He is to follow up with ENT in 1-2 weeks, information provided with discharge papers. Per patient, he does not have a primary care physician at this time, the list of primary care physicians provided to patient and encouraged patient to follow up with primary care physician in 1 week. Symptoms/diagnoses explained to patient, all questions answered and patient verbalized understanding. Vital Signs/Physical Exam: Temp Pulse Resp BP Pulse Ox 98.7 F 86 16 135/68 95 05/17/18 12:00 05/17/18 12:00 05/17/18 12:00 05/17/18 12:00 05/17/18 12:00 General: Alert, In no apparent distress, Oriented x3 HEENT: Atraumatic, PERRLA, EOMI Neck: Supple, JVD not distended Respiratory: Clear to auscultation bilaterally, Normal air movement Cardiovascular: Regular rate/rhythm, Normal S1 S2 Gastrointestinal: Normal bowel sounds, No tenderness Musculoskeletal: Swelling, Erythema, Tenderness Integumentary: No rashes Neurological: Normal speech, Normal tone, Normal affect Lymphatics: No axilla or inguinal lymphadenopathy Laboratory Data at Discharge: WBC 8.8 K/uL (4.3-10.9) D 05/17/18 05:16 Hgb 13.7 g/dL (13.6-17.9) 05/17/18 05:16 Hct 39.1 % (39.6-49.0) L 05/17/18 05:16 Plt Count 221 K/uL (152-406) 05/17/18 05:16 Sodium 140 mmol/L (136-145) 05/17/18 05:19 Potassium 3.9 mmol/L (3.5-5.1) 05/17/18 05:19 BUN 10 mg/dL (7-18) 05/17/18 05:19 Creatinine 1.30 mg/dL (0.55-1.3) 05/17/18 05:19 Glucose 91 mg/dL (74-106) 05/17/18 05:19 Home Medications: Propranolol [Inderal*] 10 mg PO PRN PRN 05/15/18 Quetiapine [Seroquel*] 800 mg PO BEDTIME 05/15/18 Trazodone [Desyrel*] 50 mg PO BEDTIME 05/15/18 clonazePAM [Klonopin*] 1 mg PO BEDTIME 05/15/18 Acyclovir [Zovirax] 800 mg PO 5XD #35 tablet 05/17/18 Ciprofloxacin HCl 750 mg PO Q12HR #28 tablet 05/17/18 traMADol HCL [Ultram*] 50 mg PO Q6H PRN #15 tab 05/17/18 New Medications: Ciprofloxacin HCl 750 mg PO Q12HR #28 tablet Acyclovir [Zovirax] 800 mg PO 5XD #35 tablet traMADol HCL [Ultram*] 50 mg PO Q6H PRN #15 tab PRN Reason: Pain Patient Discharge Instructions: Please pick a primary care physician and follow up with PCP in 1 week. Please follow up with ENT in 1-2 weeks. New medications : 1) ciprofloxacin, antibiotics for your infection. 2.) acyclovir, treatment for possible shingles Diet: Regular Activity: Ad az Followup: Kaila Asif MD [ACTIVE - CAN ADMIT] - Physician Review: Patient Assessed, Agree with Above Assessment and Plan Time spent managing pt's care (in minutes): 55
--- NOTE | 2018-05-19 11:14 | CON ---
Date of Consultation: 05/16/2018 Reasons For Consultation: Cellulitis of the ear and head, external otitis. History Of Present Illness: Mr. Hill is a 58-year-old white male, who 3-4 days prior to admission was complaining of some itching and pain of the left ear. He has a prior history of swimmer's ear a nd tried some alcohol-based Swim Ear without improvement. The external ear began to be a swollen and the pain increased. He went to the emergency room on Wednesday night and was diagnosed with otitis e xterna and given Ciprodex eardrops. The following night, he continued to have pain, which was progre ssive and seen back to the ER for re-evaluation. Due to some swelling of the face and severe pain, 8 /10 in intensity. In the emergency room, he underwent a CT scan of the neck and was admitted for IV antibiotics due to the degree of progression and concern for malignant otitis externa. Past Medical History: Bipolar disorder, nephrolithiasis, cataracts. Family History: Noncontributory. Allergies: NO KNOWN DRUG ALLERGIES. Home Medications: Seroquel, trazodone, clonazepam, propranolol. Review of Systems: Reviewed as documented in the emergency room note and is otherwise unremarkable. Physical Examination: General: The patient is alert. He is in no acute distress. He did recently receive pain medication s, which partially improved the pain. HEENT: His face is atraumatic and is symmetric. There is no sign of facial palsy. His pupils are e qual, round, reactive. Extraocular movements are intact. His external nose and nares are patent. H is lips are unremarkable. The right pinna and scalp is unremarkable. The left pinna is moderately e rythematous. The ear canal appears clear from debris, drainage, or pus. There is no granulation tis ross within the ear canal. The ear canal is mildly swollen, but the tympanic membrane is visible and does not appear to be erythematous. There are no discrete vesicles within the ear canal or on the ex ternal ear. Surrounding the ear extending into the infra-auricular and preauricular space and extend ing up onto the temporal scalp, there is erythema with a mildly papular like rash. The erythema is n ot confluent as is typically existed with bacterial cellulitis. There are no discrete vesicles noted in the area of erythema at the time of my exam, but the region is exquisitely tender to touch. Ther e is no discrete fluid collection or evidence of coalescing abscess. The patient's speech and gross neurologic function appear to be intact. Neck: Soft and supple. There is no palpable lymphadenopathy or thyromegaly. Laboratory Data: Evaluation at the time of my exam demonstrates mild leukocytosis at 11.3 with no le ft shift and mild anemia. His chemistry shows a decreased GFR. Current Medications: The patient is on home medications plus IV vancomycin and Zosyn as well as morp christy. Imaging: CT of the neck is personally reviewed by me of interest in regard to the left ear. There i s no opacification of the mastoid and there is no evidence of bony erosion of the mastoid. The middl e ear appears clear. The ear canal is mildly swollen compared to the contralateral side but appears patent. There is some swelling over the left parotid gland with minimal fat stranding. There is no obvious evidence of fluid collection or parotitis. The paranasal sinuses appear clear. There is jones e swelling of the subcutaneous tissues over the left shinto compared to the right. The full scalp is not completely visualized. X-rays of the lower neck are unremarkable. The thyroid appears normal. The submandibular glands appear normal. There is no significant cervical lymphadenopathy noted. Assessment: Based on the exam findings and the degree of pain, the patient is having, I am concerned about shingles. In discussion with the patient, he denies any recollection of ever having the chick enpox. Therefore, a varicella zoster titer may be helpful in confirming history of infection. Suspi cion for zoster is based on the texture on palpation of the rash, the degree of pain and the sharp de marcations consistent with auriculotemporal nerve activation. There is no evidence of facial palsy a nd no complaint of hearing loss or tinnitus to suggest Kobe Combs syndrome at this time. In additio n to zoster titers, the patient may benefit from starting acyclovir and use of gabapentin over narcot ics for this type of pain. The patient is improving and doing well. He can be discharged for outpat ient therapy and follow up with me in 1 to 2 weeks. CRISSY/STEPHANIE Voice ID: [id number] Report ID: [id number]
== END 2018-05-17 18:16 | disposition home or self-care (01) | DRG 155 ==
LOC: ER 15:43 → ERHOLD 19:10 → 4TH 19:55
PROVIDERS: ADMIT Family Medicine; ATTEND Family Medicine
DX: H60.22 Malignant otitis externa, left ear (principal); N17.9 Acute kidney failure, unspecified; F31.70 Bipolar disorder, currently in remission, most recent episode unspecified; E66.9 Obesity, unspecified; Z68.39 Body mass index [BMI] 39.0-39.9, adult
CPT/HCPCS: 36415; 70491; 80048; 85025; 87040; 99284; 99285; J0133; J2270; J2543; J3010; J3370; J7030; Q9967

== ENCOUNTER 2018-09-02 05:16 | Emergency (ER) | payer OTHER ==
[2018-09-02] MEDS ORDERED: NA CHLORIDE 0.9% 1,000 ML ONE (05:53)
[2018-09-02] MEDS ORDERED: CEFTRIAXONE 1000 MG/VIAL ONE (05:53)
[2018-09-02] MEDS ORDERED: MORPHINE 4 MG/ML SYR ONE (05:53)
[2018-09-02] MEDS ORDERED: ONDANSETRON 4 MG/2 ML VIAL ONE (05:53)
[2018-09-02 06:16] LABS: Absolute Lymphocytes (CBC) 1.3 K/uL (0.7-4.9); Absolute Monocytes 0.8 K/uL (0.1-1.3); Absolute Neutrophil 12.3 K/uL (1.8-8.0); Basophils % 0.4 % (0-1.3); Eosinophils % 0.9 % (0-4.4); Hematocrit 45.9 % (39.6-49.0); Lymphocytes % 9.1 % (15.3-44.8); MPV 7.8 fL (7.6-11.3); Monocytes % 5.3 % (3.3-12.3); RBC Red Blood Cell Count 5.17 M/uL (4.33-5.43)
[2018-09-02] MEDS ORDERED: FAMOTIDINE 20 MG/2 ML VIAL IV ONE (06:33)
[2018-09-02 07:05] LABS: ALT/SGPT 46 U/L (12-78); AST/SGOT 26 U/L (15-37); Albumin 3.5 g/dL (3.4-5.0); Alkaline Phosphatase 115 U/L (45-117); BUN Blood Urea Nitrogen 12 mg/dL (7-18); Bicarbonate 24 mmol/L (21-32); Bilirubin Direct 0.1 mg/dL (0-0.2); Bilirubin Total 0.6 mg/dL (0.2-1.0); Glucose Level 153 mg/dL (74-106); Lipase 58 U/L (73-393); Potassium 4.1 mmol/L (3.5-5.1); Protein, Total 7.1 g/dL (6.4-8.2); Sodium Level 140 mmol/L (136-145); Troponin (Emerg Dept Use Only) < 0.02 ng/mL (0.0-0.045)
--- NOTE | 2018-09-02 07:51 | RAD REPORT ---
EXAM DESCRIPTION: CT - Abdomen Pelvis W Contrast - 09/02/2018 7:29 am CLINICAL HISTORY: Abdominal pain/umbilical pain COMPARISON: none. TECHNIQUE: Computed axial tomography of the abdomen pelvis was obtained. 100 cc Isovue-300 was admin istered intravenously. Oral contrast was not requested which limits evaluation of bowel. All CT scans are performed using dose optimization technique as appropriate and may include automated exposure control or mA/KV adjustment according to patient size. FINDINGS: The liver, spleen, pancreas, and left adrenal appear unremarkable. Small right adrenal yamilet cification likely benign Small bilateral renal calculi. No hydronephrosis. There is no evidence of diverticulitis. Normal appendix Borderline gallbladder distention. Fluid within nondilated bowel IMPRESSION: Small nonobstructing renal calculi. The borderline gallbladder distention Fluid within nondilated bowel may indicate an enteritis
--- NOTE | 2018-09-02 08:32 | ER ---
Nurse's Notes [facility] [place] Name: Iwona Hill Age: 58 yrs Sex: Male : 1960 Arrival Date: 09/02/2018 Time: 05:17 Bed 6 Private MD: Wilberto Santos V Diagnosis: Abdominal and pelvic pain;Nausea and vomiting;Diarrhea, unspecified;Enteritis Presentation: 09/02 06:00 Presenting complaint: Patient states: Pt reports severe abdominal pain that started ea yesterday and worsened this AM. Transition of care: patient was not received from another setting of care. Onset of symptoms was September 02, 2018. Risk Assessment: Do you want to hurt yourself or someone else? Patient reports no desire to harm self or others. Initial Sepsis Screen: Does the patient meet any 2 criteria? No. Patient's initial sepsis screen is negative. Does the patient have a suspected source of infection? No. Patient's initial sepsis screen is negative. Care prior to arrival: None. 06:00 Method Of Arrival: Wheelchair ea 06:00 Acuity: ROLO 3 ea Historical: - Allergies: 06:06 No Known Allergies; ea - Home Meds: 06:06 Klonopin 1 mg Oral tab 1 tab nightly [Active]; Propranolol Oral as needed for sedation ea [Active]; Seroquel 400 mg Oral tab 2 tab nightly [Active]; trazodone 100 mg Oral tab 1 tab nightly [Active]; - PMHx: 06:06 Bipolar disorder; LOC and concussion in ; Kidney stones; psychiatric issues; ea - PSHx: 06:06 Tonsillectomy; ea - Immunization history:: Adult Immunizations up to date. - Social history:: Patient/guardian denies using alcohol, street drugs, The patient lives with family, Smoking status: Patient/guardian denies using tobacco. - Family history:: not pertinent. - Ebola Screening: : No symptoms or risks identified at this time. Screenin:04 Abuse screen: Denies threats or abuse. Nutritional screening: No deficits noted. ea Tuberculosis screening: No symptoms or risk factors identified. Fall Risk None identified. Assessment: 05:50 General: Appears uncomfortable, Behavior is calm, cooperative, appropriate for age. ea Pain: Complains of pain in umbilical area and epigastric area. Neuro: Level of Consciousness is awake, alert, obeys commands, Oriented to person, place, time, situation. Cardiovascular: Patient's skin is warm and dry. Respiratory: Airway is patent Respiratory effort is even, unlabored, Respiratory pattern is regular, symmetrical. GI: Bowel sounds present X 4 quads. Abdomen is tender to palpation in right upper quadrant and left upper quadrant. GI: Reports diarrhea, nausea, vomiting. Derm: Skin is dry, Skin is pale, Skin temperature is warm. 06:40 Reassessment: Patient and/or family updated on plan of care and expected duration. Pain ea level reassessed. Patient is alert, oriented x 3, equal unlabored respirations, skin warm/dry/pink. Patient states feeling better. 07:08 General: Appears in no apparent distress. uncomfortable, Behavior is calm, cooperative, hj appropriate for age. Pain: Complains of pain in umbilical area and epigastric area. Neuro: Level of Consciousness is awake, alert, obeys commands, Oriented to person, place, time, situation, Appropriate for age. Cardiovascular: Capillary refill < 3 seconds Patient's skin is warm and dry. Respiratory: Airway is patent Respiratory effort is even, unlabored, Respiratory pattern is regular, symmetrical. GI: Bowel sounds present X 4 quads. Abdomen is tender to palpation Reports lower abdominal pain, upper abdominal pain, diarrhea, nausea. : No signs and/or symptoms were reported regarding the genitourinary system. EENT: No signs and/or symptoms were reported regarding the EENT system. Derm: No signs and/or symptoms reported regarding the dermatologic system. Musculoskeletal: No signs and/or symptoms reported regarding the musculoskeletal system. 07:24 Reassessment: wheeled to CT;. hj 08:40 Reassessment: Patient and/or family updated on plan of care and expected duration. Pain hj level reassessed. Patient is alert, oriented x 3, equal unlabored respirations, skin warm/dry/pink. D/C instructions given;. Vital Signs: 06:03 BP 122 / 79; Pulse 80; Resp 19; Temp 97.6; Pulse Ox 96% ; Weight 99.79 kg; Height 5 ft. ea 8 in. (172.72 cm); Pain 10/10; 07:09 BP 113 / 65; Pulse 79; Resp 18; Pulse Ox 97% on R/A; hj 08:39 BP 120 / 72; Pulse 85; Resp 18; Pulse Ox 100% on R/A; hj 06:03 Body Mass Index 33.45 (99.79 kg, 172.72 cm) ea ED Course: 05:17 Patient arrived in ED. am2 05:17 Wilberto Santos MD is Private Physician. am2 05:17 Patient has correct armband on for positive identification. Bed in low position. Call ea light in reach. 05:26 Griffin Hand MD is Attending Physician. ma2 05:37 Quita Banuelos RN is Primary Nurse. ea 05:50 Arm band placed on right wrist. Patient placed in an exam room, on a stretcher, on ea pulse oximetry. 05:50 Inserted saline lock: 22 gauge in left hand, using aseptic technique. Blood collected. ea 06:02 Triage completed. ea 06:30 Inserted saline lock: 20 gauge in right antecubital area, using aseptic technique. ea 07:03 Report given to Report given to Thor MENDEZ. ea 07:30 CT Abd/Pelvis - W/Contrast In Process Unspecified. EDMS 07:56 Attending Physician role handed off by Griffin Hand MD kdr 07:56 Den Bain MD is Attending Physician. kdr 08:30 Wilberto Santos MD is Referral Physician. kdr 08:40 No provider procedures requiring assistance completed. IV discontinued, intact, hj bleeding controlled, No redness/swelling at site. Pressure dressing applied. Administered Medications: 05:55 Drug: Zofran 4 mg Route: IVP; Site: left hand; ea 06:32 Follow up: Response: No adverse reaction ea 05:58 Drug: NS 0.9% 1000 ml Route: IV; Rate: 1 bolus; Site: left hand; ea 07:00 Follow up: IV Status: Completed infusion; IV Intake: 1000ml hj 05:59 Drug: morphine 4 mg Route: IVP; Site: left hand; ea 06:32 Follow up: Response: No adverse reaction; Pain is decreased ea 05:59 Drug: Rocephin 1 grams Route: IV; Rate: calculated rate; Site: left hand; ea 07:00 Follow up: IV Status: Completed infusion hj 06:31 Drug: Pepcid 20 mg Route: IVP; Site: right antecubital; ea 07:11 Follow up: Response: No adverse reaction hj Intake: 07:00 IV: 1000ml; Total: 1000ml. bryant Outcome: 08:31 Discharge ordered by . kdr 08:40 Discharged to home ambulatory. hj 08:40 Condition: stable 08:40 Discharge instructions given to patient, Instructed on discharge instructions, follow up and referral plans. medication usage, Demonstrated understanding of instructions, follow-up care, medications, Prescriptions given X 3. 08:43 Patient left the ED. Signatures: Dispatcher [employer] EDMS Den Bain MD MD kdr Thor Savage RN RN Hayley Sapp am2 Quita Banuelos RN RN ea Alzahri, Mohammad, MD MD ma2
--- NOTE | 2018-09-02 08:32 | EDPHYS ---
Physician Documentation [facility] Name: Iwona Hill Age: 58 yrs Sex: Male : 1960 Arrival Date: 09/02/2018 Time: 05:17 Bed 6 Private MD: Wilberto Santos V ED Physician Den Bain HPI: 09/02 05:47 This 58 yrs old Male presents to ER via Unassigned with complaints of ma2 Abdominal Pain. 05:47 The patient presents with abdominal pain. Onset: The symptoms/episode began/occurred ma2 gradually, 2 day(s) ago. Associated signs and symptoms: Pertinent positives: abdominal p[ain , Pertinent negatives: anorexia, chest pain, diarrhea, fever, testicular pain. The symptoms are described as burning. Modifying factors: the symptoms are aggravated by coughing, drinking, food, medication(s). Severity of pain: At its worst the pain was moderate in the emergency department the pain is unchanged. Historical: - Allergies: 06:06 No Known Allergies; ea - Home Meds: 06:06 Klonopin 1 mg Oral tab 1 tab nightly [Active]; Propranolol Oral as needed for sedation ea [Active]; Seroquel 400 mg Oral tab 2 tab nightly [Active]; trazodone 100 mg Oral tab 1 tab nightly [Active]; - PMHx: 06:06 Bipolar disorder; LOC and concussion in ; Kidney stones; psychiatric issues; ea - PSHx: 06:06 Tonsillectomy; ea - Immunization history:: Adult Immunizations up to date. - Social history:: Patient/guardian denies using alcohol, street drugs, The patient lives with family, Smoking status: Patient/guardian denies using tobacco. - Family history:: not pertinent. - Ebola Screening: : No symptoms or risks identified at this time. ROS: 05:47 Constitutional: Negative for fever, chills, and weight loss. ma2 05:47 Cardiovascular: Negative for chest pain, palpitations, and edema, Respiratory: Negative for shortness of breath, cough, wheezing, and pleuritic chest pain, Back: Negative for injury and pain. 05:47 Abdomen/GI: Positive for abdominal pain, diarrhea, Negative for nausea and vomiting, nausea, vomiting, and diarrhea, nausea, black/tarry stool, rectal pain, bowel incontinence. 05:47 All other systems are negative. Exam: 05:47 Constitutional: This is a well developed, well nourished patient who is awake, alert, ma2 and in no acute distress. Head/Face: Normocephalic, atraumatic. Chest/axilla: Normal chest wall appearance and motion. Nontender with no deformity. No lesions are appreciated. Cardiovascular: Regular rate and rhythm with a normal S1 and S2. No gallops, murmurs, or rubs. Normal PMI, no JVD. No pulse deficits. Respiratory: Lungs have equal breath sounds bilaterally, clear to auscultation and percussion. No rales, rhonchi or wheezes noted. No increased work of breathing, no retractions or nasal flaring. MS/ Extremity: Pulses equal, no cyanosis. Neurovascular intact. Full, normal range of motion. Neuro: Awake and alert, GCS 15, oriented to person, place, time, and situation. Cranial nerves II-XII grossly intact. Motor strength 5/5 in all extremities. Sensory grossly intact. Cerebellar exam normal. Normal gait. 05:47 Abdomen/GI: Inspection: abdomen appears normal, Palpation: mild abdominal tenderness, in the epigastric area and umbilical area, rebound tenderness, is not appreciated, voluntary guarding, is not appreciated. Vital Signs: 06:03 BP 122 / 79; Pulse 80; Resp 19; Temp 97.6; Pulse Ox 96% ; Weight 99.79 kg; Height 5 ft. ea 8 in. (172.72 cm); Pain 10/10; 07:09 BP 113 / 65; Pulse 79; Resp 18; Pulse Ox 97% on R/A; hj 08:39 BP 120 / 72; Pulse 85; Resp 18; Pulse Ox 100% on R/A; hj 06:03 Body Mass Index 33.45 (99.79 kg, 172.72 cm) ea MDM: 05:26 Patient medically screened. ma2 05:47 Differential diagnosis: gastritis, pancreatitis, Perf. Duodenal Ulcer, Perf. Gastric ma2 Ulcer. 06:56 Data reviewed: vital signs, nurses notes, EMS record, care home records, diagnostic ma2 data from outside facility, old medical records. Counseling: I had a detailed discussion with the patient and/or guardian regarding: the historical points, exam findings, and any diagnostic results supporting the discharge/admit diagnosis, the presence of at least one elevated blood pressure reading (>120/80) during this emergency department visit, the need for outpatient follow up. Response to treatment: There is no appreciated change of the patient's symptoms at this time. 07:01 ED course: signed out to dr. Bain pending lab and CT . ma2 08:13 ED course: The patient is feeling better. Will PO challenge and if tolerates, will d/c kdr home. 09/02 05:27 Order name: Basic Metabolic Panel; Complete Time: 07:56 ma2 09/02 05:27 Order name: CBC with Diff; Complete Time: 06:42 ma2 09/02 05:27 Order name: Creatinine for Radiology; Complete Time: 06:42 ma2 09/02 05:27 Order name: Hepatic Function; Complete Time: 07:56 ma2 09/02 05:27 Order name: Lipase; Complete Time: 07:56 ma2 09/02 05:47 Order name: CT Abd/Pelvis - W/Contrast; Complete Time: 07:56 ma2 09/02 05:47 Order name: Troponin (emerg Dept Use Only) ma2 09/02 06:18 Order name: Troponin (Emerg Dept Use Only); Complete Time: 07:56 EDMS 09/02 07:43 Order name: Urine Dipstick--Ancillary (enter results) 09/02 05:27 Order name: IV Saline Lock; Complete Time: 06:32 ma2 09/02 05:27 Order name: Labs collected and sent; Complete Time: 06:32 ma2 09/02 05:27 Order name: Urine Dipstick-Ancillary (obtain specimen); Complete Time: 07:42 ma2 09/02 05:47 Order name: EKG - Nurse/Tech; Complete Time: 06:12 ma2 09/02 07:03 Order name: EKG Electrocardiogram EDMS Administered Medications: 05:55 Drug: Zofran 4 mg Route: IVP; Site: left hand; ea 06:32 Follow up: Response: No adverse reaction ea 05:58 Drug: NS 0.9% 1000 ml Route: IV; Rate: 1 bolus; Site: left hand; ea 07:00 Follow up: IV Status: Completed infusion; IV Intake: 1000ml hj 05:59 Drug: morphine 4 mg Route: IVP; Site: left hand; ea 06:32 Follow up: Response: No adverse reaction; Pain is decreased ea 05:59 Drug: Rocephin 1 grams Route: IV; Rate: calculated rate; Site: left hand; ea 07:00 Follow up: IV Status: Completed infusion hj 06:31 Drug: Pepcid 20 mg Route: IVP; Site: right antecubital; ea 07:11 Follow up: Response: No adverse reaction hj Disposition: 09/02/18 08:31 Discharged to Home. Impression: Abdominal and pelvic pain, Nausea and vomiting, Diarrhea, unspecified, Enteritis. - Condition is Stable. - Discharge Instructions: Diarrhea, Adult, Nausea and Vomiting, Adult, [id number], Abdominal Pain, Adult, [id number]. - Prescriptions for Bentyl 20 mg Oral Tablet - take 1 tablet by ORAL route every 6 hours As needed; 20 tablet. Pepcid 20 mg Oral Tablet - take 1 tablet by ORAL route every 12 hours for 5 days; 10 tablet. Zofran 4 mg Oral Tablet - take 1 tablet by ORAL route every 4-6 hours As needed; 20 tablet. - Medication Reconciliation Form, Thank You Letter form. - Follow up: Wilberto Santos MD; When: 2 - 3 days; Reason: If symptoms return, Further diagnostic work-up, Recheck today's complaints, Continuance of care, Re-evaluation by your physician. - Problem is an acute exacerbation. - Symptoms have improved. Signatures: Dispatcher [employer] EDMS Den Bain MD MD kdr Joaquin, Henry, RN RN hj Antunez, Elena, RN RN ea Alzahri, Mohammad, MD MD ma2 Corrections: (The following items were deleted from the chart) 05:29 05:28 Creatinine (Radiology Only) ordered. EDMN EDMS 05:29 05:28 Liver (Hepatic) Function ordered. EDMN EDMS 05:29 05:28 Lipase ordered. EDMN EDMS 06:18 05:47 Troponin (Emerg Dept Use Only) ordered. EDMN EDMS 08:43 08:31 09/02/2018 08:31 Discharged to Home. Impression: Abdominal and pelvic pain; hj Nausea and vomiting; Diarrhea, unspecified; Enteritis. Condition is Stable. Forms are Medication Reconciliation Form, Thank You Letter, Antibiotic Education, Prescription Opioid Use. Follow up: Wilberto Santos; When: 2 - 3 days; Reason: If symptoms return, Further diagnostic work-up, Recheck today's complaints, Continuance of care, Re-evaluation by your physician. Problem is an acute exacerbation. Symptoms have improved. kdr
[2018-09-02 08:47] VITALS: TEMP 97.6
[2018-09-02 08:49] VITALS: BP 120/72; O2SAT 100
[2018-09-02 11:18] LABS: Urine Blood NEGATIVE (NEG); Urine Glucose NEGATIVE (NEG); Urine Protein NEGATIVE (NEG); Urine Specific Gravity 1.025 (1.005-1.030); Urine pH 5.5 (5.0-7.0)
== END 2018-09-02 08:43 | disposition home or self-care (01) ==
LOC: ER 05:16
DX: K52.9 Noninfective gastroenteritis and colitis, unspecified (principal); F31.9 Bipolar disorder, unspecified
CPT/HCPCS: 93005; 85025; 80048; 36415; 80076; 81003; 84484; 83690; 74177; 99284; Q9967; J7030; J2405; 96365; 96375